=== PATIENT | female | born 1995 | race Caucasian/White ===

== ENCOUNTER 2020-09-20 02:07 | Emergency (ER) | payer BC ==
[~2020-09-20] VITALS: Ht 170.2 cm; Wt 95.3 kg
[2020-09-20 03:09] LABS: URINE BILIRUBIN NEGATIVE (Negative); URINE BLOOD NEGATIVE (Negative); URINE CLARITY SL CLOUDY; URINE COLOR YELLOW; URINE GLUCOSE-RANDOM NEGATIVE (Negative); URINE KETONES NEGATIVE (Negative); URINE LEUKOCYTES-REFLEX TRACE (Negative); URINE NITRITE-REFLEX NEGATIVE (Negative); URINE PROTEIN NEGATIVE (Negative); URINE UROBILINOGEN 0.2 E.U./dl (0.2-1.0)
[2020-09-20 03:15] LABS: AMP/METHAMP Negative (Negative); BARBITURATES Negative (Negative); BENZODIAZEPINES Negative (Negative); COCAINE Negative (Negative); METHADONE Negative (Negative); OPIATES Negative (Negative); PCP Negative (Negative); THC Negative (Negative)
[2020-09-20 03:37] LABS: CALCIUM 8.8 mg/dL (8.5-10.1); CREATININE 0.9 mg/dL (0.6-1.3); POTASSIUM 3.7 mmol/L (3.5-5.1)
[2020-09-20 03:41] LABS: ALBUMIN 3.6 g/dL (3.4-5.0); TOTAL BILIRUBIN 0.5 mg/dL (<0.1-1.0); TOTAL PROTEIN 6.7 g/dL (6.4-8.2)
[2020-09-20 03:43] LABS: ABSOLUTE EOSINOPHILS 0.1 thou/uL (0.0-0.7); ABSOLUTE LYMPHOCYTES 2.6 thou/uL (0.8-5.3); ABSOLUTE MONOCYTES 0.5 thou/uL (0.0-1.2); ABSOLUTE NEUTROPHILS 6.2 thou/uL (1.6-8.1); BASOPHILS 0.3 %; HEMATOCRIT 39.3 % (37.0-47.0); HEMOGLOBIN 13.6 gm/dL (12.0-15.0); LYMPHOCYTES 27.1 %; MCH 30.7 pg (26.0-34.0); MCHC 34.7 g/dL (28.0-37.0); MCV 88.3 fL (80.0-100.0); MONOCYTES 5.8 %; MPV 8.3 fl. (7.2-11.1); NUCLEATED RBCS 0 /100WBC; PLATELET COUNT* 221 thou/uL (150-400); POLYS 65.8 %; RBC 4.45 mil/uL (4.20-5.00); RDW-CV 13.4 % (10.5-14.5); WBC 9.4 thou/uL (4.0-11.0)
[2020-09-20 04:06] LABS: SQUAMOUS >10 Many /LPF (0-3)
[2020-09-20 04:07] LABS: CASTS None Seen /LPF (None Seen); MUCUS 0-3 Light strn/LPF (None Seen); URINE RBC 0-2 Rare /HPF (0-2); URINE WBC-REFLEX 0-5 Rare /HPF (0-5)
[2020-09-20 04:08] LABS: AMORPHOUS PHOSPHATES Moderate /LPF (None Seen)
[2020-09-20] MEDS ORDERED: ZOFRAN ODT4 MG PO (06:40)
[2020-09-20] MEDS ORDERED: CARAFATE 1 GM TA1 GM PO (06:40)
[2020-09-20] MEDS ORDERED: OMEPRAZOLE40 MG PO (06:40)
[2020-09-20 06:58] VITALS: BP 138/78
== END 2020-09-20 06:58 | disposition home or self-care (01) ==
LOC: M.ERS 02:07
PROVIDERS: Personal Emergency Response Attendant
DX: K80.50 Calculus of bile duct without cholangitis or cholecystitis without obstruction (principal); K76.89 Other specified diseases of liver; Z90.49 Acquired absence of other specified parts of digestive tract